=== PATIENT | female | born 1940 | race Caucasian/White ===

== ENCOUNTER 2016-09-25 06:55 | Day surgery (SDC) | payer MEDICARE, MEDICAID ==
[2016-09-25] MEDS ORDERED: SIMETHICONE 40 MG/0.6 ML ML ONE (07:27)
[2016-09-25] MEDS: MIDAZOLAM HCL 5 MG/5 ML VIAL ONE ×3 (08:54→09:00)
[2016-09-25] MEDS: fentaNYL CITRATE/PF 100 MCG/2 ML AMP ONE ×2 (08:54→08:56)
[2016-09-25 12:10] VITALS: BP_SYST 127
== END 2016-09-25 10:40 | disposition home or self-care (01) ==
LOC: SDS 06:55
PROVIDERS: ATTEND Internal Medicine
DX: K59.09 Other constipation (principal); K64.8 Other hemorrhoids; E11.9 Type 2 diabetes mellitus without complications; I10 Essential (primary) hypertension; E78.4 Other hyperlipidemia
CPT/HCPCS: 45378; J2250; J3010; J7030